=== PATIENT | male | born 1985 | race Caucasian/White ===

== ENCOUNTER 2024-06-14 06:34 | Day surgery (SDC) | payer BC ==
[2024-06-12 15:57] VITALS: BMI 29.0
[2024-06-14] MEDS ORDERED: EPINEPHrine 1:1,000 1,000 MCG/ML ML ONE (07:19)
[2024-06-14] MEDS ORDERED: BUPIVACAINE HCL/PF 0.25% (2.5MG/ML) 10 ML VIAL ONE (07:19)
[2024-06-14] MEDS ORDERED: PROPOFOL 20 ML ONE ×2 (07:27→07:32)
[2024-06-14] MEDS ORDERED: MIDAZOLAM HCL 2 MG/2 ML SINGLE DOSE VIAL ONE (07:27)
[2024-06-14] MEDS ORDERED: DEXAMETHASONE SOD PHOSPHATE 4 MG/1 ML VIAL ONE (07:31)
[2024-06-14] MEDS ORDERED: ALBUTEROL SO4 HFA INHALER IH ONE (07:31)
[2024-06-14] MEDS ORDERED: oxyCODONE HCL 5 MG TABLET PO PRN (08:55)
[2024-06-14] MEDS ORDERED: ONDANSETRON 4 MG/2 ML VIAL IVPUSH PRN (08:55)
[2024-06-14] MEDS ORDERED: LACTATED RINGERS SOLUTION 1,000 ML IV SCH (09:00)
[2024-06-14] MEDS ORDERED: ACETAMINOPHEN INJECTION 100 ML ONE (09:24)
[2024-06-14] MEDS: ACETAMINOPHEN 1000 MG/100 ML BAG IVPB ONE (09:25)
[2024-06-14 10:13] VITALS: PULSE 70; RESP 16; TEMP 97.6
[2024-06-14 10:25] VITALS: BP 124/78
== END 2024-06-14 10:30 | disposition home or self-care (01) ==
LOC: FASU 06:34
PROVIDERS: ATTEND Orthopaedic Surgery Sports Medicine
PROC: 0SBC4ZZ Excision of Right Knee Joint, Percutaneous Endoscopic Approach (ICD-10-PCS; principal; 2024-06-14 08:21)
DX: S83.241A Other tear of medial meniscus, current injury, right knee, initial encounter (principal); M94.261 Chondromalacia, right knee; X58.XXXA Exposure to other specified factors, initial encounter; Y93.9 Activity, unspecified; Y92.9 Unspecified place or not applicable
CPT/HCPCS: 94760; J0131